=== PATIENT | female | born 1990 | race Hispanic/Latino ===

== ENCOUNTER 2018-03-03 20:04 | Day surgery (SDC) | payer SELFPAY ==
[2018-03-03 20:41] VITALS: BMI 30.5
--- NOTE | 2018-03-03 21:34 | PDOC.LDHP ---
Labor and Delivery H&P Chief complaint: contractions HPI: Fiona Hopkins is a 27 year old F at 39.6 by 8.6 wk US c/w LMP who presented to the L&D for contractions. The contractions started at approximately 4 pm today. She was seen at the [facility] at 2 pm today and was checked and was 2/50/-3. Started at 4 pm, she has had contractions once every 5 -10 min. Denies LOF, denies vaginal bleeding, discharge. +FM. She denies any issues in this . She states that initially she had a low lying placenta but that is now normal. Current gestational age (weeks): 39 (39.6) Due date: 03/04/18 Dating criteria: last menstrual period, first trimester ultrasound Grav: 4 Para: 2 (2011) OB History Details: 2 pregnancies resulted in , one was a 9 month AB Current complications: none Abnormal US findings: No (initial low lying placenta-now resolved) Current medications: pre-jose vitamins Previous surgical history: none Social history: none - Physical Exam Vital signs reviewed and normal: yes General: NAD Heart: RRR Lungs: CTAB Abdomen: gravid Extremeties: no edema FHT: category 1 [place] contractions every: baseline 140, mod ronak, accels present, decels absent - Vaginal Exam cm dilated: 2 Effacement: 50% Station: -3 - OB Labs Blood type: A RH: positive Antibody Screen: negative HIV: negative RPR: negative HEPSAg: negative 1 hour GCT: negative (86) GBS: negative Rubella: immune - Assessment (1) sIUP (2) Latent Labor (3) Hx of SAB s/p D&C (4) Umbilical Hernia (5) Family Hx of DM (6) Complete previa this , now resolved (7) hx of fall during 2T - Plan Plan: observation in L&D -: Fiona Hopkins is a 27 year old F at 39.6 wks by 8.6 wk US c/w LMP (1) sIUP - 2/50/-3 upon arrival to L&D, same at check in clinic today at 2 pm - edward q6-q10 min - will recheck cervix 2 hours after initial check - patient walking the floor (2) Low lying placenta-now resolved (3) Fam hx of DM: - 1h gtt was 86 (4) hx of fall in 2nd trimester - No vaginal bleeding - normal US after fall (5) umbilical hernia - monitor - asymptomatic (6) hx of SAB s/p D/C <Shaw Mcinotsh - Last Filed: 03/03/18 22:21> <Ector Middleton - Last Filed: 03/03/18 22:33> Allergies/Adverse Reactions: Allergies Allergy/AdvReac Type Severity Reaction Status Date / Time No Known Allergies Allergy Verified 03/03/18 20:35 Attending Addendum - Attending Addendum Date/Time: 03/03/18 8472 I evaluated the patient and discussed the management with Dr. Mcintosh. I agree with the History, Examination, Assessment and Plan. <Ector Middleton - Last Filed: 03/03/18 22:33>
== END 2018-03-03 22:45 | disposition home or self-care (01) ==
LOC: L&D/OP 20:04
PROVIDERS: ATTEND Obstetrics & Gynecology
DX: O47.1 False labor at or after 37 completed weeks of gestation (principal); O44.03 Complete placenta previa NOS or without hemorrhage, third trimester; O99.613 Diseases of the digestive system complicating pregnancy, third trimester; K42.9 Umbilical hernia without obstruction or gangrene; Z3A.39 39 weeks gestation of pregnancy; Z98.890 Other specified postprocedural states
CPT/HCPCS: 99283

== ENCOUNTER 2018-03-09 05:44 | Inpatient (IN) | payer MEDICAID, OTHER, SELFPAY ==
[2018-03-09] MEDS ORDERED: Ibuprofen 800 MG TAB PO PRN (06:16)
[2018-03-09] MEDS ORDERED: Lidocaine 1% (PF) 30 ML VIAL SC PRN (06:16)
[2018-03-09] MEDS ORDERED: HYDROcodone/Acetaminophen 5/325 mg Tablet PO PRN ×2 (06:16)
[2018-03-09] MEDS ORDERED: Ondansetron HCl/PF 4 MG/2 ML Vial IVP PRN ×2 (06:16→08:30)
[2018-03-09] MEDS ORDERED: NS / Oxytocin 40 units/1000ml 1,000 ML IV PRN (06:16)
[2018-03-09] MEDS ORDERED: Butorphanol Tartrate 1 MG/ML VIAL SLOW IVP PRN (06:16)
[2018-03-09] MEDS ORDERED: Bupivacaine 0.5% 20 ML, fentaNYL Citrate/PF 400 MCG in Sodium Chloride 0.9% 72 ML EPIDURAL SCH (06:30)
[2018-03-09] MEDS ORDERED: Lactated Ringer's 1,000 ML IV SCH (06:30)
[2018-03-09] MEDS ORDERED: DISCONTINUE ALL PREVIOUS NARCOTICS FS SCH (06:30)
[2018-03-09 06:40] LABS: Hemoglobin 15.2 g/dL (12.0-16.0); Mean Corpuscular HGB CONC 35.1 g/dL (32.0-36.0); Mean Corpuscular Hemoglobin 32.1 pg (27.0-31.0); Mean Corpuscular Volume 91.6 fl (81.0-99.0); Mean Platelet Volume 10.3 fL (7.4-10.4); Platelet Count 123 thou/uL (130-400); RBC Distribution Width 12.6 % (11.5-14.5); Red Blood Cell (RBC) Count 4.74 mill/uL (4.20-5.40); White Blood Cell (WBC) Count 9.2 thou/uL (4.8-10.8)
[2018-03-09 07:24] LABS: HBSAg Index 0.21 S/CO (0-0.99); Hep B Surf Ag Non-Reactive S/CO (NonReactive)
[2018-03-09] MEDS ORDERED: Misoprostol 200 MCG TAB ONE (07:58)
[2018-03-09 08:01] LABS: Syphilis Antibody Nonreactive (Nonreactive); Syphilis Antibody Index 0.05 S/CO (<1.00 Non-Reactive)
--- NOTE | 2018-03-09 08:16 | PDOC.LDHP ---
Addendum entered and electronically signed by Wilian Morataya MD 03/09/18 08:22: F presents at 40wk 5 days LMP: 05/28/17 LOAN: 03/04/18, confirmed with 1st trimester US Original Note: Labor and Delivery H&P Chief complaint: contractions HPI: 27 yo F presents with contractions that started about 3 am. She states the contractions became closer together and at time of presentation were 3-5 minutes apart. She thinks she may have had a slow loss of clear fluid but does not note a gush of fluids. The patient denies any bleeding. No headache, scotoma , SOB, or swelling. No dysuria, still feeling baby move often. Dating criteria: last menstrual period, first trimester ultrasound Grav: 4 Para: 2 OB History Details: Uneventful course. Placenta previa noted at anatomic US, was resolved at 31 weeks. Negative IOB labs. 1 hour GCT negative. GBS negative. S/P TDAP. Current complications: none Abnormal US findings: Yes (placenta previa at anatomic scan, resolved by 31 wks) Current medications: pre-jose vitamins Social history: none - Physical Exam Vital signs reviewed and normal: yes General: NAD Heart: RRR Lungs: nonlabored breathing Abdomen: NTTP Extremeties: no edema FHT: category 1 - Vaginal Exam cm dilated: 7 Effacement: 90% Station: 1+ - OB Labs Blood type: A RH: positive Antibody Screen: negative HIV: negative RPR: negative HEPSAg: negative 1 hour GCT: negative GBS: negative Urine drug screen: negative Rubella: immune - Assessment L&D Assessment: term patient in labor - Plan Plan: admit to L&D -: Admit to L&D in active labor Prepare for delivery consult anesthesia for epidural <Wilian Morataya - Last Filed: 03/09/18 08:13> <Duane Le - Last Filed: 03/10/18 12:55> Allergies/Adverse Reactions: Allergies Allergy/AdvReac Type Severity Reaction Status Date / Time No Known Allergies Allergy Verified 03/03/18 20:35 Attending Addendum - Attending Addendum Date/Time: 03/10/18 2500 I personally evaluated the patient and discussed the management with Dr. Morataya I agree with the History, Examination, Assessment and Plan documented above with any addition or exceptions noted below. <Duane Le - Last Filed: 03/10/18 12:55>
[2018-03-09] MEDS ORDERED: Communication Order-Pharmacy FS SCH (08:30)
[2018-03-09] MEDS ORDERED: ePHEDrine/0.9% NaCl/PF SYRINGE 50 mg/10 ml SLOW IVP PRN (08:30)
[2018-03-09] MEDS ORDERED: Promethazine HCl 25 MG/ML VIAL IM PRN (08:30)
[2018-03-09] MEDS ORDERED: Fentanyl 4mcg/Marcaine 0.1% Cassette 100 ML EPIDURAL SCH (08:30)
[2018-03-09] MEDS ORDERED: Eucerin (Mineral Oil/Petrolatum,White) 30 gm Jar TOP PRN (08:30)
[2018-03-09] MEDS ORDERED: Lactated Ringer's 500 ML IV PRN (08:30)
[2018-03-09] MEDS ORDERED: Naloxone HCl 0.4 mg/ml Vial IVP PRN ×2 (08:30)
[2018-03-09] MEDS ORDERED: diphenhydrAMINE 50 MG/ML VIAL IVP PRN (08:30)
[2018-03-09] MEDS ORDERED: Acetaminophen 325 MG TAB PO PRN (08:30)
--- NOTE | 2018-03-09 08:57 | DN-2 ---
PROCEDURE: Vaginal delivery. DELIVERING PHYSICIAN: Dr. Wilian Morataya, Dr. Rosey Whalen ATTENDING: Dr. Duane Le PROCEDURE: Spontaneous vaginal delivery. ANESTHESIA: Epidural. ESTIMATED BLOOD LOSS: 350 mL. PREOPERATIVE DIAGNOSIS: Term intrauterine in labor. POSTOPERATIVE DIAGNOSES: Term intrauterine , delivered. INDICATIONS: A 27-year-old now female who presented in active labor. DELIVERY NOTE: This 27-year-old now female at 40 weeks, delivered a viable female at 7: 43 a.m. on 03/09/2018. Following an uneventful antepartum course, a vigorous female baby was deliver ed over an intact perineum in the occipitoanterior position. Anterior shoulder and the remainder of the body were delivered. There was no nuchal cord. The head was held down and the mouth and nares w ere bulb suctioned. The cord was clamped and cut after a 1 minute delay. Cord blood was collected. Placenta was delivered intact with a 3-vessel cord. Fundal massage was performed and the fundus was firm after application of IV Pitocin. Rectal Cytotec 800 mg was added in order to help with hemosta sis. The cervix and vagina were inspected and found to be free of lacerations. Apgars were 9 and 9 at 1 and 5 minutes respectively. The patient tolerated the delivery well and went to the unit after routine recovery.
[2018-03-09] MEDS ORDERED: Lidocaine 2% MPF 10 ML AMP (For Epidural Use) ONE (10:00)
[2018-03-09] MEDS ORDERED: Bupivacaine 0.25% HCL 30 ML VIAL ONE (10:00)
[2018-03-09] MEDS ORDERED: Benzocaine/Menthol 20-0.5% 60 ML CAN TOP PRN (10:20)
[2018-03-09] MEDS ORDERED: Adacel (T-DAP) 0.5 ML VIAL IM ONE (10:20)
[2018-03-09] MEDS ORDERED: Prenatal Vitamin 1 TAB PO SCH (10:20)
[2018-03-09] MEDS ORDERED: Milk Of Magnesia 30 ML UDCUP PO PRN (10:20)
[2018-03-09] MEDS ORDERED: Lanolin Ointment 7 GM TUBE TOP PRN (10:20)
[2018-03-09] MEDS ORDERED: NS / Oxytocin 40 units/1000ml 1,000 ML IV SCH (10:20)
[2018-03-09] MEDS ORDERED: Docusate Calcium (SURFAK) 240 MG CAP PO SCH (10:20)
[2018-03-09] MEDS ORDERED: Bisacodyl 10 MG SUPP PR PRN (10:20)
[2018-03-09] MEDS: Lactated Ringer's 1,000 ML IV SCH ×2 (14:21→17:18)
[2018-03-09] MEDS: Ibuprofen 800 MG TAB PO SCH ×2 (14:24→21:21)
[2018-03-09] MEDS ORDERED: Acetaminophen/Codeine 30-300mg Tablet PO PRN (15:45)
[2018-03-09] MEDS: Ferrous Sulfate 325 MG TAB PO SCH (17:18)
[2018-03-09] MEDS: Docusate Calcium (SURFAK) 240 MG CAP PO SCH (19:39)
[2018-03-09] MEDS: Acetaminophen/Codeine 30-300mg Tablet PO PRN (23:27)
[2018-03-10 05:13] LABS: Hemoglobin 10.7 g/dL (12.0-16.0); Mean Corpuscular HGB CONC 35.1 g/dL (32.0-36.0); Mean Corpuscular Hemoglobin 32.6 pg (27.0-31.0); Mean Corpuscular Volume 92.8 fl (81.0-99.0); Mean Platelet Volume 10.3 fL (7.4-10.4); Platelet Count 106 thou/uL (130-400); RBC Distribution Width 12.7 % (11.5-14.5); White Blood Cell (WBC) Count 8.2 thou/uL (4.8-10.8)
[2018-03-10] MEDS: Lactated Ringer's 1,000 ML IV SCH ×2 (06:37→06:39)
[2018-03-10] MEDS: Ibuprofen 800 MG TAB PO SCH ×2 (06:38→13:57)
--- NOTE | 2018-03-10 07:03 | PDOC.PP ---
Post Progress Note Post Day #: 1 PO intake tolerated: yes Flatus: yes Ambulation: yes Vital Signs (12 hours) Temp Pulse Resp 03/10/18 04:00 98.3 F 61 20 03/10/18 00:00 98.3 F 61 20 03/09/18 20:00 98.3 F 61 20 Weight Weight 178 g - Physical Examination General: NAD Cardiovascular: no m/r/g, RRR Respiratory: clear to auscultation bilaterally, non-labored breathing Abdominal: + bowel sounds, lochia (scant), no distention, appropriately TTP Fundus firm & at: umbilicus Extremities: negative homans (B) Skin: no rash Neurological: no gross focal deficits Psychiatric: A&Ox3, normal affect Result Diagrams: 03/10/18 04:22 Additional Labs: Post Labs Blood Type A POSITIVE 03/09/18 06:20 Hep Bs Antigen Non-Reactive S/CO (NonReactive) 03/09/18 06:20 - Assessment/Plan 27 yo PPD #1 from 1. Meeting all pp milestones as above 2. 3. Possible d/c today pending baby and pain control 4. Pain adequately controlled on tylenol #3 and motrin 5. PP H&H stable 6. s/p Tdap antepartum, other labs reviewed and WNL 7. Plan for f/u at [facility] in 2 weeks, likely vasectomy for pp contraception MD Hernán, PGY-2 <Rosey Whalen - Last Filed: 03/10/18 07:13> Vital Signs (12 hours) Temp Pulse Resp BP 03/10/18 04:10 98.5 F 69 18 95/55 L 03/10/18 04:00 98.3 F 61 20 03/10/18 00:00 98.3 F 61 20 03/09/18 21:00 98.4 F 81 18 107/60 03/09/18 20:00 98.3 F 61 20 Weight Weight 178 g Result Diagrams: 03/10/18 04:22 Additional Labs: Post Labs Blood Type A POSITIVE 03/09/18 06:20 Hep Bs Antigen Non-Reactive S/CO (NonReactive) 03/09/18 06:20 <Ector Middleton - Last Filed: 03/10/18 07:30> Attending Addendum - Attending Addendum Date/Time: 03/10/18729 I personally evaluated the patient and discussed the management with Dr. Whalen. I agree with the History, Examination, Assessment and Plan. <Ector Middleton - Last Filed: 03/10/18 07:30>
[2018-03-10 07:28] VITALS: BP 95/55; TEMP 98.5
[2018-03-10] MEDS ORDERED: Prenatal Vitamin 1 TAB PO SCH (09:00)
[2018-03-10] MEDS: Ferrous Sulfate 325 MG TAB PO SCH (09:19)
[2018-03-10] MEDS: Docusate Calcium (SURFAK) 240 MG CAP PO SCH (09:20)
[2018-03-10] MEDS: Acetaminophen/Codeine 30-300mg Tablet PO PRN (12:04)
== END 2018-03-10 17:00 | disposition home or self-care (01) | DRG 775 ==
LOC: L&D/OP 05:44 → L&D 06:19 → 3SW 10:45
PROVIDERS: ADMIT Obstetrics & Gynecology; ATTEND Obstetrics & Gynecology
PROC: 10E0XZZ Delivery of Products of Conception, External Approach (ICD-10-PCS; principal; 2018-03-09)
DX: O80 Encounter for full-term uncomplicated delivery (principal); Z3A.40 40 weeks gestation of pregnancy; Z37.0 Single live birth
CPT/HCPCS: 36415; 51702; 85027; 86780; 86850; 86900; 86901; 87340; 99285; J2001; J3010; J3490; J7050; S0020

== ENCOUNTER 2024-03-24 14:48 | Emergency (ER) | payer SELFPAY ==
[~2024-03-24 14:48] MED LIST: Iopamidol-370 76% 500 ML MDV (1 ML CHARGE) ONE
[2024-03-24 16:38] LABS: #Basophils Less than 0.03 10x3/uL (0.0-0.2); %Basophils 0.3 % (0.0-1.0); %Eosinophils 0.5 % (0.0-10.0); %Lymphocytes 26.2 % (21.0-51.0); %Monocytes 6.4 % (0.0-10.0); %Neutrophils 66.6 % (42.0-75.0); BHCG - Serum Negative (NEGATIVE); Hematocrit 30.8 % (36.0-47.0); Hemoglobin 9.2 g/dL (12.0-16.0); Mean Corpuscular HGB CONC 29.9 g/dL (32.0-36.0); Mean Corpuscular Hemoglobin 20.1 pg (27.0-31.0); Mean Corpuscular Volume 67.2 fL (78.0-98.0); Platelet Count 325 10x3/uL (130-400); Pregs Control Background? CLEAR/WHITE (CLR/WHITE); Pregs Control Bar Appear? YES (CONTROL BAR); RBC Distribution Width 20.7 % (11.5-14.5); Red Blood Cell (RBC) Count 4.58 mill/uL (4.20-5.40)
[2024-03-24 16:40] LABS: Bacteria/HPF 1+ HPF (None Seen); Bilirubin Negative (Negative); Blood, Urine Trace (Negative); CAUTI Indications for Culture Dysuria,urgency,freq; Clarity Clear (Clear); Glucose, Urine (Dipstick) Normal (Negative); Ketone, Urine Negative (Negative); Leukocyte Negative Leu/uL (Negative); Nitrite Negative (Negative); Protein, Urine (Dipstick) Negative (Neg-Trace); RBC/HPF 0-3 HPF (0-3); Specific Gravity, Urine 1.006 (1.002-1.036); Squamous Epithelial None Seen HPF (0-3); Urobilinogen Normal mg/dL (Less than 2); WBC/HPF 0-3 HPF (0-3)
[2024-03-24] MEDS ORDERED: Ondansetron PF 4 MG/2 ML Vial ONE (16:40)
[2024-03-24 16:41] LABS: Urine Culture Reflex No No
[2024-03-24 16:45] LABS: ALT (SGPT) 15 U/L (8-55); AST (SGOT) 12 U/L (5-34); Albumin 3.8 g/dL (3.5-5.0); Alkaline Phosphatase 55 U/L (40-110); Anion Gap 13 mmol/L (10-20); BUN (Urea Nitrogen) 10 mg/dL (7.0-18.7); Bilirubin, Total 0.3 mg/dL (0.2-1.2); Calc. Creatinine Clearance 0 mL/min (70-130); Calcium 9.1 mg/dL (7.8-10.44); Carbon Dioxide 19 mmol/L (22-29); Chloride 106 mmol/L (98-107); Estimated GFR 121; Globulin 4.8 g/dL (2.4-3.5); Glucose 84 mg/dL (70-105); Lipase 17 U/L (8-78); Potassium 3.8 mmol/L (3.5-5.1); Protein, Total 8.6 g/dL (6.0-8.3); Sodium 134 mmol/L (136-145)
[2024-03-24 17:02] LABS: Anisocytosis SLIGHT = 6-15 cells HPF (0-5); Hypochromia SLIGHT = 6-15 cells HPF (0-5); Microcytosis SLIGHT = 6-15 cells HPF (0-5); Ovalocytes SLIGHT = 2-5 cells HPF (0-1); Platelet Adequacy Comment Platelets Normal; Poikilocytosis SLIGHT = 6-15 cells HPF (0-5); Schistocytes SLIGHT = 2-5 cells HPF (0-1); Tear Drops SLIGHT = 2-5 cells HPF (0-1)
== END 2024-03-24 18:55 | disposition home or self-care (01) ==
LOC: ERS 14:48
DX: M54.50 Low back pain, unspecified (principal); R10.33 Periumbilical pain
CPT/HCPCS: 36415; 74177; 80053; 81001; 83690; 84703; 85025; 96374; J2405